=== PATIENT | female | born 1990 | race Hispanic/Latino ===

== ENCOUNTER 2022-06-21 20:48 | Emergency (ER) | payer OTHER ==
[~2022-06-21] VITALS: Ht 154.9 cm; Wt 61.2 kg
[2022-06-21 20:57] VITALS: BP 107/66
== END 2022-06-21 21:12 | disposition home or self-care (01) ==
LOC: EDH 20:48
DX: F41.0 Panic disorder [episodic paroxysmal anxiety] (principal); R25.2 Cramp and spasm